=== PATIENT | male | born 1965 | race Caucasian/White ===

== ENCOUNTER 2021-09-14 14:01 | Emergency (ER) | payer OTHER, SELFPAY ==
--- NOTE | ~2021-09-14 | XR_ITS ---
EXAMINATION: XR KNEE, RIGHT CLINICAL INFORMATION: Right knee swelling and pain COMPARISON: None TECHNIQUE: Four views of the right knee. FINDINGS: There is no evidence of acute fracture or dislocation of the right knee. There is narrowing of the patellofemoral joint with prominent marginal spurring. There is a right knee effusion. There is spurring seen about the medial and lateral joint space compartments without significant narrowing. Quadriceps and patella tendon spurs are seen about the patella. 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 Right knee effusion.
[2021-09-14 14:03] VITALS: BP 162/104; PULSE 88; RESP 19; TEMP 36.8; O2SAT 95; BMI 38.5
[2021-09-14] MEDS: oxyCODONE HCl Immed Release 5 MG TABLET PO (15:46)
[2021-09-14 15:57] LABS: MANUAL DIFF FLAG NO
[2021-09-14 15:59] LABS: Basophils Percent Auto 0.4 % (0-2); Eosinophils Absolute Auto 0.2 X10*3/uL (0.0-0.4); Hematocrit 45.6 % (42.0-52.0); Hemoglobin 14.6 g/dl (14.0-18.0); Imm Gran Abs Auto 0.03 X10*3/uL (0.00-0.03); Imm Gran Pct Auto 0.4 % (0.0-0.4); Lymphocytes Absolute Auto 1.3 X10*3/uL (1.2-4.9); Mean Corpuscular Hemoglobin 27.7 pg (27.0-33.0); Mean Corpuscular Volume 86.4 fL (80.0-98.0); Mean Platelet Volume 9.6 fL (9.4-12.4); Monocytes Absolute Auto 0.8 X10*3/uL (0.1-1.2); Monocytes Percent Auto 9.4 % (2-11); Neutrophils Absolute Auto 5.7 x10*3/uL (2.0-8.3); Neutrophils Percent Auto 70.8 % (45-73); Platelet Count 216 X10*3/uL (160-400); Red Blood Count 5.28 X10*6/uL (4.60-5.80); Red Cell Distribution Width 14.2 % (11.0-16.0)
[2021-09-14 16:27] LABS: Alanine Aminotransferase 23 U/L (0-40); Albumin Level 4.1 g/dL (3.5-5.0); Alkaline Phosphatase 76 U/L (39-117); Anion Gap 13 (12-20); Aspartate Amino Transferase 15 U/L (5-37); Bilirubin Total 0.3 mg/dL (0.0-1.0); Blood Urea Nitrogen 15 mg/dL (9-16); Calcium 9.1 mg/dL (8.4-10.2); Carbon Dioxide 27 mmol/L (22-29); Chloride 107 mmol/L (96-108); Creatinine Clr Calc Pharmacy 102.7; Estimated Glomerular Filt Rate > 60; Glucose Random 101 mg/dL (60-115); Potassium 4.8 mmol/L (3.3-5.1); Sodium 142 mmol/L (135-145); Total Protein 6.8 g/dL (6.5-8.0); Uric Acid 8.3 mg/dL (3.4-7.0)
--- NOTE | 2021-09-14 16:29 | ED.EXTPRO ---
HPI - Extremity Problem General Chief complaint: Extremity Problem Stated complaint: Gout Time Seen by Provider: 09/14/21 15:21 Source: patient Mode of arrival: ambulatory Limitations: no limitations History of Present Illness HPI Narrative: 48-year-old male with a past medical history of gout presents for right knee pain and swelling. Patient had sudden acute warm, red, swollen, painful knee that happened very quickly 2 days ago. Patient's last episode of gout was over year ago. Patient has been taking ibuprofen. No trauma, no fevers, no known tick bites, no chest pain, no vomiting, no diarrhea, no shortness of breath Related Data Previous Rx's Medication Instructions Recorded oxycodone 5 mg capsule 5 mg PO Q6H PRN #9 cap 09/14/21 prednisone 10 mg tablet 10 mg PO DAILY #63 tab 09/14/21 Allergies Allergy/AdvReac Type Severity Reaction Status Date / Time No Known Allergies Allergy Intermediate UNKNOWN Unverified 12/30/19 16:33 [NO KNOWN ALLERGIES] Review of Systems Review of Systems: Constitutional : No Weight loss, No Fever, No Chills, No Night Sweats,No Fatigue, No Malaise ENT/Mouth : No Hearing loss, No Ear Pain, No Nasal Congestion, NoSinus Pain, No Hoarseness, No sore throat, No Rhinorrhea, NoSwallowing Difficulty Eyes: No Eye Pain, No Swelling, No Redness, No Foreign Body, NoDischarge, No Vision Changes Cardiovascular : No Chest Pain, No SOB, No Dyspnea on Exertion, NoOrthopnea, No Edema, No Palpitations Respiratory : No Cough, No Sputum, No Wheezing, No Smoke Exposure, No Dyspnea Gastrointestinal : No Nausea, No Vomiting, No Diarrhea, NoConstipation, No abdominal Pain, No Hematochezia, No Melena Genitourinary : no irregular bleeding, No Dysuria, No UrinaryFrequency, No Hematuria, No Urinary Incontinence, No Urgency, No FlankPain, No Urinary Flow Changes, No Hesitancy Musculoskeletal : right knee pain, swelling, warmth Skin : warmth right knee Neuro : No Weakness, No Numbness, No Paresthesias, No Loss ofConsciousness, No Dizziness, No Headache Psych , , No Depression, No SI/HI/AH/VH, No Social Issues, Endocrine : No Polyuria, No Polydipsia, No Temperature Intolerance Yes all other systems are reviewed and are negative [facility] Social History Social History Advance Directives: No Advance Directives Information Provided: No Physical Exam Vital Signs: Vital Signs: Last Vital Signs Temp 98.2 F 09/14/21 14:03 Pulse 88 09/14/21 14:03 Resp 19 09/14/21 14:03 BP 162/104 H 09/14/21 14:03 Pulse Ox 95 09/14/21 14:03 BMI result Body Mass Index 38.5 Appearance: Alert. Oriented X3. No acute distress. Head: Normal external exam. Normocephalic. Atraumatic. ?No Weir signs noted. No raccoon eyes noted Eyes: PERRLA. EOMI. Conjunctiva and sclera normal. Eyelids normal. ENT: EAC normal. TM's Normal. Pharynx normal. Uvula midline. Moist mucous membranes. ??No trismus noted. ?No drooling noted. ?No muffled voice noted. Neck: Normal inspection. Neck supple. FROM. No adenopathy. Thyroid Normal. No meningeal signs. No neck mass noted. CVS: Normal heart rate and rhythm. Heart sound normal. Pulses normal throughout. ?No murmurs/rales/gallops. Respiratory: No respiratory distress. Painless inspiration. Breath sounds normal. No wheezes/rales/rhonchi noted. Chest nontender. ??No accessory muscle usage noted or decreased air movement noted. Abdomen: Soft and nontender. Bowel sounds normal in all 4 quadrants. No distention noted. ?No organomegaly noted. ?No visible injury noted. Back: ?No CVA tenderness. ?Full range of motion noted. ?No rashes/lesion/induration/fluctuance or signs of infection noted. Skin: Skin warm and dry. ?Normal skin color. ?Normal skin turgor. No rashes/lesions/lacerations noted. Extremities: No lower extremity edema. ??Extremities exhibit normal range of motion. ?Extremities nontender. Neuro: Oriented X 3. ?No motor deficit. ?No sensory deficit. ?Reflexes normal. ?Normal steady gait. ?No focal neuro deficits noted. Vascular: + radial pulses/+ 2 distal pedal pulses/+2 dorsalis pedis b/l. ?Normal cap refill. ?No cyanosis noted to upper extremity nails and lower extremity toes nails. Neuro: Oriented X 3. No motor deficit. No sensory deficit. ?Reflexes normal. Moving all extremities. ?No focal motor deficits. ?Cranial nerves II-XI intact bilaterally. ??Facial strength normal. ??Normal cognition. Speech normal. Gait normal. Strength 5/5 throughout. No pronator drift. No tremor noted. No fasciculations noted. No rigidity noted. Muscle tone normal throughout. No asterixis noted. [id number] test normal. ?Heel to campa test normal. Tandem gait normal. Does not sway with eyes open. Romberg test negative. Rapid alternating movement upper extremity normal. Rapid alternating movement lower extremity normal. ??Hand drop from overhead Misses face. ?NIHSS score 0. Const: General: cooperative, no acute distress, well developed, alert and awake Nutritional Appearance: well nourished Orientation/consciousness: patient oriented x3 Limitations: no limitations Eyes: Conjunctivae: conjunctivae normal Pupils: Equal, round and reactive pupils present EOM: EOMs intact bilaterally Neck: Neck: Yes full ROM, Yes no lymphadenopathy and Yes supple Resp: Effort & Inspection: normal respiratory effort and able to speak in complete sentences Auscultation: clear to auscultation bilaterally, no crackles, no rales, no rhonchi and no wheezes Cardio: Rate: regular rate Rhythm: regular rhythm Heart sounds: S1 normal heart sound present and S2 normal heart sound present GI: Inspection: Yes normal to inspection Palpation (GI): Soft to palpation, nontender, no guarding and not rigid Percussion: Yes normal to percussion Auscultation: normal bowel sounds Skin: General skin exam: no rashes or lesions noted Neuro: General: patient oriented x3, tone normal and moves all extremities Cranial nerves: Yes Equal, round and reactive pupils present Extrem: Right lower extremity: normal capillary refill and knee Details: tenderness Location: of the lateral joint line, swelling, abnormal ROM Details: pain with active ROM during Details: in extension and in flexion and pain with passive ROM during Details: in extension and in flexion; Negative for able to extend lower leg actively and warmth; No no cyanosis and no edema Psych: Appearance: grossly normal Affect: normal affect Attitude: cooperative Thought process: Normal thought process present Course Course Course Narrative: 56-year-old male presents for sudden onset of right knee pain and swelling. Patient has a history of gout. Patient's labs show white blood cell count of 8.0 with a uric acid of 8.3. Discussed case with Dr Walker, who suggested that the sudden onset would make it more likely gout rather than a bacterial infection. X-ray is negative. Started patient on a prednisone taper discussed with patient that we cannot rule out a septic joint without taking a sample of synovial fluid, so if he is not better in 2 days, or if he has fevers or the swelling and pain gets much worse, he should return to the emergency room. FINDINGS: There is no evidence of acute fracture or dislocation of the right knee. There is narrowing of the patellofemoral joint with prominent marginal spurring. There is a right knee effusion. There is spurring seen about the medial and lateral joint space compartments without significant narrowing. Quadriceps and patella tendon spurs are seen about the patella.? 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 Right knee effusion. ? MDM - Extremity (Nontraumatic) Lab Data Result diagrams: 09/14/21 15:51 09/14/21 15:51 Labs: Lab Results 09/14/21 09/14/21 Range/Units 15:51 15:51 WBC 8.0 (4.8-10.8) X10*3/uL RBC 5.28 (4.60-5.80) X10*6/uL Hgb 14.6 (14.0-18.0) g/dl Hct 45.6 (42.0-52.0) % MCV 86.4 (80.0-98.0) fL MCH 27.7 (27.0-33.0) pg MCHC 32.0 (31.0-36.0) g/dl RDW 14.2 (11.0-16.0) % Plt Count 216 (160-400) X10*3/uL MPV 9.6 (9.4-12.4) fL Immature Gran % (Auto) 0.4 (0.0-0.4) % Neut % (Auto) 70.8 (45-73) % Lymph % (Auto) 16.0 L (20-40) % [place] % (Auto) 9.4 (2-11) % Eos % (Auto) 3.0 (0-4) % Baso % (Auto) 0.4 (0-2) % Lymph # (Auto) 1.3 (1.2-4.9) X10*3/uL [place] # (Auto) 0.8 (0.1-1.2) X10*3/uL Eos # (Auto) 0.2 (0.0-0.4) X10*3/uL Baso # (Auto) 0.0 (0.0-0.2) X10*3/uL Abs Immat Gran (auto) 0.03 (0.00-0.03) X10*3/uL Absolute Neuts (auto) 5.7 (2.0-8.3) x10*3/uL Absolute Nucleated RBC 0.000 (0.0-0.012) X10*3/uL Nucleated RBC % (auto) 0.0 (0.0-0.2) /100WBC Sodium 142 (135-145) mmol/L Potassium 4.8 (3.3-5.1) mmol/L Chloride 107 (96-108) mmol/L Carbon Dioxide 27 (22-29) mmol/L Anion Gap 13 (12-20) BUN 15 (9-16) mg/dL Creatinine 1.15 (0.5-1.4) mg/dL Estim Creat Clear Calc 102.7 Estimated GFR > 60 Random Glucose 101 (60-115) mg/dL Uric Acid 8.3 H (3.4-7.0) mg/dL Calcium 9.1 (8.4-10.2) mg/dL Total Bilirubin 0.3 (0.0-1.0) mg/dL AST 15 (5-37) U/L ALT 23 (0-40) U/L Alkaline Phosphatase 76 (39-117) U/L Total Protein 6.8 (6.5-8.0) g/dL Albumin 4.1 (3.5-5.0) g/dL Discharge Plan Discharge Clinical Impression: Gout Patient Disposition: Home, Self-Care Instructions: Gout (ED) Additional Instructions: this is most likely gout. We cannot confirm it entirely without taking on a sample of fluid from inside your knee joint. I do not think we need to do that today, however, if you have fevers, worsening pain, worsening swelling, please return to the emergency room. I have prescribed prednisone for you, you must take it in its entire prescription even though you may be feeling better. If you do not hear from us in 5 days about your Lyme test, you can assume it is negative Prescriptions: New prednisone 10 mg tablet 10 mg PO DAILY Qty: 63 0RF Rx Instructions: Take 6 tabs for 3 days, take 5 tabs for 3 days, take 4 tabs for 3 days, 3 tabs for 3 days, 2 tabs for 3 days, 1 tab for 3 days oxycodone 5 mg capsule 5 mg PO Q6H PRN (Reason: pain) Qty: 9 0RF Stand Alone Forms: Work/School Release Interventions: ED Discharge Assessment Last Done: 09/14/21 17:05 Discharge Date/Time: 09/14/21 17:05
[2021-09-14] MEDS: predniSONE 20 MG TABLET 60 MG PO (16:40)
[2021-09-15 09:06] LABS: Lyme Abs Screen <0.90 index
== END 2021-09-14 17:05 | disposition home or self-care (01) ==
PROVIDERS: Physician Assistant; Emergency Provider Student in an Organized Health Care Education/Training Program
DX: M10.9 Gout, unspecified (principal)
CPT/HCPCS: 36415; 73562; 80053; 84550; 85025; 86617; 86618; 99282; 99283

== ENCOUNTER 2021-11-08 15:47 | Emergency (ER) | payer OTHER, SELFPAY ==
--- NOTE | ~2021-11-08 | XR_ITS ---
EXAMINATION: XR HAND, LEFT CLINICAL INFORMATION: Pain and swelling for 5 days. No known injury. COMPARISON: None TECHNIQUE: PA, lateral, and oblique views of the left hand. FINDINGS: Diffuse dorsal soft tissue swelling. No tracking soft tissue gas. No radiodense foreign body. No fracture or dislocation. No periostitis or osseous destructive change. Joint spaces at the wrist are maintained. Prominent intraosseous cyst in the distal scaphoid pole. Mild osteophyte formation at the triscaphe and first CMC joints. MCP joint spaces are maintained. Mild IP joint osteoarthritic changes with small marginal osteophytes. Mild subchondral cystic change at the fifth PIP joint also noted. XR/XR hand LT min 3V IMPRESSION: 1. No acute osseous injury. 2. Diffuse dorsal soft tissue swelling. No tracking soft tissue gas or radiodense foreign body. 3. Mild osteoarthritic changes, as above.
[2021-11-08 17:17] VITALS: BP 134/95; PULSE 77; RESP 16; TEMP 36.6; O2SAT 97; BMI 37.2
--- NOTE | 2021-11-08 20:22 | ED.EXTPRO ---
HPI - Extremity Problem General Chief complaint: Extremity Problem Stated complaint: gout l hand Time Seen by Provider: 11/08/21 20:22 Source: patient Mode of arrival: ambulatory Limitations: no limitations History of Present Illness HPI Narrative: patient with a known history of gout. Recently had it in his knee. Now with left wrist pain for 4 days. Some improvement with motrin. Complaint: extremity pain Onset (ago): week(s) Pain Consistency: constant Location: left and upper extremity Quality: burning Relieving factors: medication Associated symptoms: denies other symptoms Related Data Previous Rx's Medication Instructions Recorded oxycodone 5 mg capsule 5 mg PO Q6H PRN pain #9 caps 09/14/21 prednisone 10 mg tablet 10 mg PO DAILY #63 tabs 09/14/21 colchicine 0.6 mg tablet (Colcrys) 0.6 mg PO DAILY #7 tabs 11/08/21 indomethacin 50 mg capsule 50 mg PO TID #20 caps 11/08/21 Allergies Allergy/AdvReac Type Severity Reaction Status Date / Time No Known Allergies Allergy Intermediate UNKNOWN Verified 11/08/21 17:19 [NO KNOWN ALLERGIES] Review of Systems Constitutional: Constitutional: Reports no additional constitutional complaints Eyes: Eyes: Reports no additional eye complaints ENT: Denies dizziness Cardiovascular: Cardiovascular: Reports no additional cardiovascular complaints Respiratory: Respiratory: Reports as per HPI Gastrointestinal: Gastrointestinal: Reports no additional gastrointestinal complaints Musculoskeletal: Musculoskeletal: Reports no additional musculoskeletal complaints Integumentary/Breasts: Skin/Breast: Denies rash Neurologic: Reports system reviewed and no additional complaints, except as documented, Denies dizziness and Denies Sensory deficit (Neuro) Psychiatric: Psychiatric: Denies anxiety [facility] Social History Social History Advance Directives: No Advance Directives Information Provided: No Physical Exam Vital Signs: Vital Signs: Last Vital Signs Temp 97.8 F 11/08/21 17:17 Pulse 77 11/08/21 17:17 Resp 16 11/08/21 17:17 BP 134/95 H 11/08/21 17:17 Pulse Ox 97 11/08/21 17:17 O2 Del Method 11/08/21 17:17 BMI result Body Mass Index 37.2 Const: General: healthy appearing Nutritional Appearance: average body habitus Orientation/consciousness: oriented to person and patient oriented x3 Limitations: no limitations HEENT: Head: Yes normal to inspection Ears: external ears normal General nose exam: Normal external nose present Mouth: Normal oral and palatal mucosa present and oropharynx normal Throat: Yes posterior oropharynx normal Eyes: General: appearance normal, both eyes and all related structures Neck: Other: supple Neck: Yes normal visual inspection Chest: Chest palpation & inspection: normal inspection of the chest Resp: Auscultation: clear to auscultation bilaterally Cardio: Jugular venous distension: no JVD Rate: regular rate Rhythm: regular rhythm Heart sounds: S1 normal heart sound present and S2 normal heart sound present GI: Inspection: Yes normal to inspection Palpation (GI): Soft to palpation, nontender and No hepatosplenomegaly present Auscultation: normal bowel sounds : General: Yes no CVA tenderness Back/Spine/Pelvis: Back: no CVA tenderness Skin: General skin exam: no rashes or lesions noted Neuro: General: oriented to person and patient oriented x3 Cranial nerves: Yes CN's II-XII intact bilaterally Motor exam (neuro): 5/5 motor strength present throughout Sensory Exam: No Sensory deficit (Neuro) Extrem: Other: left wrist with mild swelling and warmth, pain with range of motion of the wrist. Psych: Appearance: grossly normal Course Reevaluation(s) Reevaluation #1: patient with multiple attacks of gout over the years will treat with colcrys and indocin. Time: 20:29 MDM - Extremity (Nontraumatic) Imaging Data wrist: Radiologist's impression: FINDINGS: Diffuse dorsal soft tissue swelling. No tracking soft tissue gas. No radiodense foreign body. No fracture or dislocation. No periostitis or osseous destructive change. Joint spaces at the wrist are maintained. Prominent intraosseous cyst in the distal scaphoid pole. Mild osteophyte formation at the triscaphe and first CMC joints. MCP joint spaces are maintained. Mild IP joint osteoarthritic changes with small marginal osteophytes. Mild subchondral cystic change at the fifth PIP joint also noted.? XR/XR hand LT min 3V IMPRESSION: ? 1. No acute osseous injury. 2. Diffuse dorsal soft tissue swelling. No tracking soft tissue gas or radiodense foreign body. 3. Mild osteoarthritic changes, as above. Dictated By: Jeffery Bone Signed By: <Electronically signed by Jaleel Bone in OV> 11/08/21 7149 Discharge Plan Discharge Clinical Impression: Gout Patient Disposition: Home, Self-Care Instructions: Low Purine Diet (ED), Gout (ED) Prescriptions: New colchicine [Colcrys] 0.6 mg tablet 0.6 mg PO DAILY Qty: 7 0RF indomethacin 50 mg capsule 50 mg PO TID Qty: 20 0RF Rx Instructions: administer with food or milk No Action prednisone 10 mg tablet 10 mg PO DAILY Qty: 63 0RF Rx Instructions: Take 6 tabs for 3 days, take 5 tabs for 3 days, take 4 tabs for 3 days, 3 tabs for 3 days, 2 tabs for 3 days, 1 tab for 3 days oxycodone 5 mg capsule 5 mg PO Q6H PRN (Reason: pain) Qty: 9 0RF Referrals: Physician,Unknown J [Primary Care Provider] - 1 week
[2021-11-08] MEDS: Indomethacin 25 MG CAPSULE 50 MG PO (21:07)
[2021-11-08] MEDS: Colchicine 0.6 MG TABLET PO (21:07)
== END 2021-11-08 21:16 | disposition home or self-care (01) ==
PROVIDERS: Emergency Provider Emergency Medicine
DX: M10.042 Idiopathic gout, left hand (principal); Z79.899 Other long term (current) drug therapy
CPT/HCPCS: 73130; 99283